=== PATIENT | male | born 2000 | race Hispanic/Latino ===

== ENCOUNTER 2021-01-18 10:29 | Observation (INO) | payer OTHER ==
[~2021-01-18] VITALS: Ht 180.3 cm; Wt 81.8 kg
[2021-01-18 11:47] LABS: BASO % 0.3 % (0.0-1.0); HEMOGLOBIN 14.9 g/dl (13.5-17.5); LYMPH % 6.3 % (24.0-44.0); MEAN CORPUSCULAR HEMOGLOBIN 27.8 pg (27.0-33.0); MEAN CORPUSCULAR HGB CONC 33.9 g/dl (32.0-36.5); MEAN CORPUSCULAR VOLUME 82.1 fl (80.0-96.0); MONO # 0.7 10^3/uL (0.0-0.8); MONO % 4.4 % (2.0-8.0); NEUTROPHILS # 14.1 10^3/uL (1.5-8.5); NEUTROPHILS % 88.7 % (36.0-66.0); PLATELET COUNT, AUTOMATED 289 10^3/uL (150-450); RED BLOOD COUNT 5.36 10^6/uL (4.30-6.10); WHITE BLOOD COUNT 15.9 10^3/uL (4.0-10.0)
[2021-01-18] MEDS ORDERED: KETOROLAC 30 MG/ML 1ML VIAL IV ONE (11:55)
[2021-01-18] MEDS ORDERED: NS 1,000 ML IV SCH (11:55)
[2021-01-18 12:17] LABS: BILIRUBIN,DIRECT 0.2 MG/DL (0.0-0.2); BILIRUBIN,TOTAL 0.9 MG/DL (0.2-1.0); TOTAL PROTEIN 7.7 GM/DL (6.4-8.2)
[2021-01-18] MEDS: GASTROGRAFIN SOLUTION 30ML PO SCH ×2 (12:34→13:03)
[2021-01-18] MEDS ORDERED: ISOVUE-370 76% 100ML VIAL As Ordered ONE (14:05)
--- NOTE | 2021-01-18 14:31 | REP ---
INDICATION: RLQ pain, r/o appendicitis. COMPARISON: None TECHNIQUE: Axial contrast-enhanced images from the lung bases to the pubic symphysis using oral and 100 cc Isovue 370 intravenous contrast material. Coronal and sagittal reformations obtained. This CT examination was performed using the following dose reduction techniques: Automated exposure control, adjustment of mA and/or kv according to the patient's size, and the use of iterative reconstruction technique. FINDINGS: Oral contrast outlines the mid to distal small bowel as well as the cecum. There is normal appearance to the terminal ileum and cecum without right lower quadrant inflammatory changes. The appendix is incompletely identified, but proximal/midportion appears fluid-filled without wall thickening and measures 7 mm maximal diameter. Liver, spleen, pancreas, gallbladder, bilateral adrenal glands and kidneys are normal. No evidence for bowel obstruction or obvious acute inflammatory process. Pelvis demonstrates normal bladder and age-appropriate prostate/seminal vesicles. Small amount of pelvic fluid is identified and nonspecific. Abdominal aorta and vasculature appear normal. No free air. No obvious adenopathy. Musculoskeletal structures are intact. IMPRESSION: 1. Evaluation is somewhat limited due to paucity of intraperitoneal fat and incomplete identification of the appendix. Proximal to mid portion of the appendix is identified and appears grossly normal although measures up to 7 mm which is upper limits of normal. A small amount of free fluid in the pelvis cannot be excluded. These findings are equivocal and although likely not related to appendicitis, close clinical observation may be warranted. 2. No further acute abdominopelvic pathology appreciated or suspected. <Electronically signed by Kevin Ellington > 01/18/21 [id number]
[2021-01-18] MEDS ORDERED: ONDANSETRON 4 MG TAB PO PRN (16:35)
[2021-01-18] MEDS ORDERED: MORPHINE 2 MG/ML 1ML VIAL (J2270) IV PRN ×2 (16:35)
[2021-01-18] MEDS: NS 1,000 ML IV SCH (17:00)
[2021-01-18 17:10] LABS: RSV AMPLIFICATION NEGATIVE (NEGATIVE)
[2021-01-18] MEDS ORDERED: HOME MED LIST COMPLETE! XX SCH (17:25)
[2021-01-18] MEDS: PIPERACILLIN/TAZOBACTAM SOD 3.375 GM in D5W MINI-BAG PLUS 50 ML IV SCH (17:58)
[2021-01-18] MEDS: KETOROLAC 30 MG/ML 1ML VIAL IV SCH (17:58)
[2021-01-18 22:00] VITALS: BP 125/67
[2021-01-19] MEDS: PIPERACILLIN/TAZOBACTAM SOD 3.375 GM in D5W MINI-BAG PLUS 50 ML IV SCH ×3 (00:27→11:31)
[2021-01-19] MEDS: KETOROLAC 30 MG/ML 1ML VIAL IV SCH ×3 (00:27→11:31)
[2021-01-19] MEDS: NS 1,000 ML IV SCH ×2 (00:28→08:18)
[2021-01-19 06:00] VITALS: BP 120/61
[2021-01-19] MEDS ORDERED: AUGM875T28 PO (08:39)
[2021-01-19 10:00] VITALS: BP 143/88
--- NOTE | 2021-01-19 12:54 | DS.PDOC ---
Discharge Summary General Date of Admission Jan 18, 2021 at 10:30 Date of Discharge 01/19/21 Discharge Summary General Surgery Dr Goldstein. PROCEDURES PERFORMED DURING STAY: None. ADMITTING DIAGNOSES: 1. Abdominal pain DISCHARGE DIAGNOSES: 1. Abdominal pain/likely enteritis HISTORY OF PRESENT ILLNESS: The patient is a 20-year-old male who reported to the emergency department 01/18/2021 reporting sharp abdominal pain and some chills. Imaging in the emergency department included CT abdomen/pelvis with IV and oral contrast, evaluation was limited, incomplete identification of the appendix but was felt to be grossly normal, no other acute pathology was noted. HOSPITAL COURSE: The patient was admitted for observation and placed on IVF IV Zosyn, clear liquids. The patient remained afebrile throughout. By the morning of 01/19/2021 the patient was sitting up in bed having clear liquids for breakfast. He reported abdominal pain had resolved. He stated he was feeling much better. The patient was again reviewed and examined as per Dr Goldstein 01/19/2021. Plan was to advance the patient to regular diet and ensure he was able to tolerate this for breakfast and if no further changes plan for discharge after lunch. DISCHARGE MEDICATIONS: Please see below. ALLERGIES: Please see below. PHYSICAL EXAMINATION ON DISCHARGE: VITAL SIGNS: Please see below. GENERAL: No acute distress HEENT: MMM CARDIOVASCULAR EXAMINATION: RRR RESPIRATORY EXAMINATION: CTA ABDOMINAL EXAMINATION: Soft, nontender, nondistended. EXTREMITIES: No edema LABORATORY DATA: Please see below. IMAGING: IMPRESSION: 1. Evaluation is somewhat limited due to paucity of intraperitoneal fat and incomplete identification of the appendix. Proximal to mid portion of the appendix is identified and appears grossly normal although measures up to 7 mm which is upper limits of normal. A small amount of free fluid in the pelvis cannot be excluded. These findings are equivocal and although likely not related to appendicitis, close clinical observation may be warranted. 2. No further acute abdominopelvic pathology appreciated or suspected. <Electronically signed by Kevin Ellington > 01/18/21 DISCHARGE PLAN: Discharge home DISCHARGE INSTRUCTIONS: Discharge home today after lunch Activity as tolerated Regular diet Augmentin 875 mg p.o. twice daily for 7 days See PCP at [facility] For RTW instructions. DISCHARGE CONDITION: Stable. Vital Signs/I&Os Vital Signs Date Time Temp Pulse Resp B/P (MAP) Pulse Ox O2 Delivery O2 Flow Rate FiO2 01/19/21 10:00 98.5 72 18 143/88 (106) 100 Room Air I&O- Last 24 Hours up to 6 AM 01/19/21 06:00 Intake Total 1600 ml Balance 1600 ml Laboratory Data Labs 24H Laboratory Tests 2 01/18/21 15:01: Urine Color YELLOW, Urine Appearance CLEAR, Urine pH 6.0, Urine Specific [place] 1.011, Urine Protein NEGATIVE, Urine Glucose (UA) NEGATIVE, Urine Ketones TRACEH, Urine Blood NEGATIVE, Urine Nitrite NEGATIVE, Urine Bilirubin NEGATIVE, Urine Urobilinogen 0.2, Urine Leukocyte Esterase NEGATIVE, Urine WBC (Auto) 0, Urine RBC (Auto) 0, Urine Hyaline Casts (Auto) 0, Urine Bacteria (Auto) NEGATIVE, Urine Squamous Epithelial Cells 0, Urine Sperm (Auto) 01/18/21 16:16: Coronavirus (COVID-19)(PCR) NEGATIVE, Influenza Type A (RT-PCR) NEGATIVE, Influenza Type B (RT-PCR) NEGATIVE, Respiratory Syncytial Virus (PCR) NEGATIVE Discharge Medications Scheduled Amoxicillin/Potassium Clav (Augmentin 875-125 Tablet) 1 Each Tablet, 1 TAB PO BID Allergies Coded Allergies: No Known Allergies (Unverified , 01/18/21) Cheri Pelletier Jan 19, 2021 12:22
== END 2021-01-19 14:08 | disposition home or self-care (01) ==
LOC: M ED 10:29 → M ED INP 10:30 → ENRESERV 20:06 → M MS5PR 22:04
PROVIDERS: ADMIT Surgery; ATTEND Surgery
DX: R10.9 Unspecified abdominal pain (principal); K52.9 Noninfective gastroenteritis and colitis, unspecified
CPT/HCPCS: 74177; 80047; 80076; 81001; 83690; 85025; 87631; 96361; 96365; 96366; 96375; 96376; 99285; J1885; J2543; Q9963; Q9967